=== PATIENT | female | born 1975 | race Caucasian/White ===

== ENCOUNTER 2023-01-05 11:37 | Outpatient (CLI) | payer OTHER | END 2023-01-05 11:38 | disposition home or self-care (01) | LOC: SCSRAD 11:37 | DX: M54.16 Radiculopathy, lumbar region (principal); M47.812 Spondylosis without myelopathy or radiculopathy, cervical region; M50.322 Other cervical disc degeneration at C5-C6 level; V89.2XXA Person injured in unspecified motor-vehicle accident, traffic, initial encounter | CPT/HCPCS: 72050; 72100 ==

== ENCOUNTER 2025-05-13 07:44 | Outpatient (CLI) | payer OTHER | END 2025-05-13 07:45 | disposition home or self-care (01) | LOC: SCSMRI 07:44 | PROVIDERS: ATTEND Internal Medicine Gastroenterology | DX: R79.89 Other specified abnormal findings of blood chemistry (principal) | CPT/HCPCS: 74183; 76376 ==